=== PATIENT | female | born 1990 | race Asian ===

== ENCOUNTER 2017-04-12 15:59 | Emergency (ER) | payer OTHER ==
[2017-04-12 16:54] VITALS: O2SAT 98
--- NOTE | 2017-04-12 17:00 | EDPHY ---
General - History Smoking Status: Never smoked Narrative: The patient was evaluated and managed by the physician's drafter assistant. My cosignature indicates that I reviewed the chart and I agree with the findings and plan of care as documented. I am the secondary supervising physician. ( Diana Lockwood) CHIEF COMPLAINT: Marijuana ingestion HISTORY OF PRESENT ILLNESS: Patient presents with spouse at bedside. He provides the bulk of the history. She took 10 mg of marijuana last night with no response.They report that she ingested 10 mg of edible marijuana at 12:00 p.m.. She waited 1 hr with no results, that she ingested another 5 mg of edible marijuana. Approximately 1-2 hours later she became very anxious, somewhat agitated and felt as though she had difficulty controlling her right arm. No vomiting. No chest pain. No shortness of breath. No trauma or injury. No modifying factors. No other associated complaints. REVIEW OF SYSTEMS: Ten systems reviewed and are negative unless otherwise noted in the HPI PCP: None SPECIALISTS: none PAST MEDICAL HISTORY: None PAST SURGICAL HISTORY: None SOCIAL HISTORY: Nonsmoker. FAMILY HISTORY: Noncontributory EXAMINATION General Appearance: Alert, no distress Head: normocephalic, atraumatic Eyes: Pupils equal and round, no conjunctival pallor or injection. EOMs intact. ENT, Mouth: Mucous membranes moist Neck: Normal inspection, supple, non-tender Respiratory: Lungs are clear to auscultation. No wheezing rhonchi or crackles Cardiovascular: Regular rate and rhythm. No murmur Gastrointestinal: Abdomen is soft and nontender Back: non-tender, no bony abnormalities Neurological: GCS 15. A&O, nonfocal, strength is symmetric. No pronator drift. No seizure-like activity Skin: Warm and dry, no rash no petechiae purpura Extremities: Nontender, no pedal edema Psychiatric: Mood and affect normal DIFFERENTIAL DIAGNOSES: Including but not limited to the adverse drug reaction, marijuana overdose, anxiety attack MDM: 5:00 p.m. Tran with adverse reaction. Vital signs are stable. She is in no acute distress. No seizure activity. Chest pain. Neuro exam is within normal limits. I have ordered a dose of Ativan will be checked. 5:40 p.m. Patient re-evaluated. She is feeling significantly better after the Ativan. She is asking to be discharged home. I do feel she is stable to do so. Vital signs are stable. She is in no acute distress. We discussed increasing fluid intake and avoiding marijuana ingestion. She will follow up with primary care physician. ED precautions discussed. Discharged home stable condition. SUPERVISION: Patient was independently examined, but I discussed the case with my secondary supervising physician Dr. Lockwood ([facility]) - Objective Vital Signs: Initial Vital Signs Temperature (C) 98.2 F 04/12/17 16:02 Heart Rate 98 04/12/17 16:02 Respiratory Rate 16 04/12/17 16:02 Blood Pressure 125/80 H 04/12/17 16:02 O2 Sat (%) 100 04/12/17 16:02 O2 Delivery Mode Room Air Allergies/Adverse Reactions: No Known Allergies Allergy (Unverified 04/12/17 16:03) Medications Given: Discontinued Medications Lorazepam (Ativan) 1 mg PO EDNOW ONE Stop: 04/12/17 17:02 Last Admin: 04/12/17 17:17 Dose: 1 mg Departure - Departure Referrals: NONE *PRIMARY CARE P,. [Primary Care Provider] - As per Instructions
[2017-04-12] MEDS ORDERED: LORazepam 1 MG TAB PO ONE (17:01)
[2017-04-12 18:04] VITALS: BP 122/75; PULSE 89; RESP 16; TEMP 98.6
== END 2017-04-12 18:04 | disposition home or self-care (01) ==
DX: T40.7X1A Poisoning by cannabis (derivatives), accidental (unintentional), initial encounter (principal)